=== PATIENT | female | born 1970 | race Asian ===

== ENCOUNTER 2018-05-20 21:41 | Emergency (ER) | payer OTHER ==
[~2018-05-20] VITALS: Ht 152.4 cm; Wt 77.1 kg
[2018-05-20 22:00] VITALS: BP_SYST 137
[2018-05-20 23:23] VITALS: BP_SYST 126
== END 2018-05-20 23:23 | disposition home or self-care (01) ==
LOC: SED 21:41
DX: L30.9 Dermatitis, unspecified (principal); R03.0 Elevated blood-pressure reading, without diagnosis of hypertension
CPT/HCPCS: 99283